=== PATIENT | male | born 1940 | race Caucasian/White ===

== ENCOUNTER 2024-07-10 12:56 | Emergency (ER) | payer MEDICARE, BC ==
[2024-07-10] MEDS ORDERED: Bacitracin 1 PK ONE (15:05)
[2024-07-10] MEDS ORDERED: Boostrix 0.5 ML (Tdap) VIAL (>/=7 yrs of age) ONE (15:15)
== END 2024-07-10 15:24 | disposition home or self-care (01) ==
LOC: ERS 12:56
DX: S00.93XA Contusion of unspecified part of head, initial encounter (principal); S00.01XA Abrasion of scalp, initial encounter; E11.9 Type 2 diabetes mellitus without complications; W19.XXXA Unspecified fall, initial encounter
CPT/HCPCS: 70450; 72125; 90471; 90715; G0390